=== PATIENT | female | born 1990 ===

== ENCOUNTER 2018-05-13 21:27 | Inpatient (IN) | payer BC ==
[2018-05-13 21:43] VITALS: O2SAT 100
[2018-05-13] MEDS ORDERED: Naloxone 0.4 mg/ml Inj (Adult) IVP STA (22:29)
[2018-05-13] MEDS ORDERED: Sodium Chloride 0.9% 1,000 ML IV STA (22:32)
--- NOTE | 2018-05-13 22:43 | ED PDOC ---
HPI: Psych/Substance Abuse Time Seen by Provider: 05/13/18 22:02 Chief Complaint (Nursing): Psychiatric Evaluation Chief Complaint (Provider): Suicide Attempt ED Caveat: Altered Mental Status History Per: Patient, EMS, Family Onset/Duration Of Symptoms: Hrs Current Symptoms Are (Timing): Still Present Suicide/Self Injury Attempted (Context): Ingestion (Ativan?) Modifying Factor(s): Alcohol Associated Symptoms: Depression, Suicidal Plan Additional Complaint(s): 28 yo F with history of depression presents to the emergency department brought in by EMS/[place] police after suicide attempt. Per [place] police, as coworker of the patient called the police after the patient had threatened to kill herself by jumping into the [place]. Police found her car along [facility] but the patient could not be found. They were able to track her to [facility] where patient was found tearful and lethargic appearing. Pt admitted to police to taking pills. Information per NGOZI Solorzano When speaking with patient, she states that she wants to . She states she took Ativan which is prescribed to her by her psychiatrist. She states that she took 5 x 10mg tablets. Pt was told that it is unlikely that she is prescribed 10mg tablets of Ativan, she is insistent that this is her dose. Pt states she also took other drugs. During evaluation, pt became bradycardic and unresponsive to painful stimuli. Nurses immediately placed IV lines and anesthesia was called for possible intu bation. During evaluation by anesthesiologist, pt became responsive refusing intubation. Pt now speaking with staff with stable vitals on the monitor. Past Medical History Vital Signs: Last Vital Signs Temp 98.6 F 05/13/18 21:40 Pulse 137 H 05/13/18 21:40 Resp 30 H 05/13/18 21:40 BP 96/52 L 05/13/18 21:40 Pulse Ox 100 05/13/18 21:40 - Medical History PMH: Depression - Surgical History Surgical History: No Surg Hx - Family History Family History: States: Unknown Family Hx - Living Arrangements Living Arrangements: Other (safe house) - Home Medications Home Medications: Ambulatory Orders Medication Instructions Recorded Fluoxetine HCl [Prozac] 40 mg PO DAILY 05/14/18 LORazepam [Ativan] 0.5 mg PO Q4 PRN 05/14/18 RX: buPROPion [Wellbutrin] 75 mg PO DAILY #30 tab 05/18/18 - Allergies Allergies/Adverse Reactions: Allergies Allergy/AdvReac Type Severity Reaction Status Date / Time No Known Allergies Allergy Verified 05/14/18 07:29 Review of Systems Constitutional: Negative for: Fever, Chills, Weakness Eyes: Positive for: Vision Change (double vision) Cardiovascular: Negative for: Chest Pain, Palpitations Respiratory: Negative for: Cough, Shortness of Breath Gastrointestinal: Negative for: Nausea, Vomiting, Abdominal Pain Genitourinary Female: Negative for: Dysuria Musculoskeletal: Negative for: Neck Pain Skin: Negative for: Rash, Lesions Neurological: Negative for: Weakness, Numbness Psych: Positive for: Depression - Laboratory Results Result Diagrams: 05/13/18 23:11 05/14/18 04:39 - ECG O2 Sat by Pulse Oximetry: 100 Medical Decision Making Medical Decision Makin yo F with suicide attempt by taking questionable amount of Ativan. Unresponsive episode spontaneously resolved consistent with syncope. Pt on 1:[address] -labs -Drug screen, ETOH, acetaminophen and salicylate levels -IV fluids -Crisis evaluation -site monitor. -re-evaluate patient 0010 Spoke to poison control and provided patient story, lab results, and EKG findings. Spoke directly to Anjana. Anjana recommends symptomatic treatment and IV fluids. Pt now medically optimized for evaluation by crisis team. 0700 Pt medically optimised and pending evaluation by crisis. Pt signed out to Dr. Perry Disposition - Clinical Impression Clinical Impression: Drug overdose, intentional - Disposition Disposition: Transfer of Care Disposition Time: 07:00 Condition: STABLE
[2018-05-13 23:36] LABS: BASO # 0.1 K/uL (0.0-0.2); BASO % 0.8 % (0.0-2.0); EOS # 0.2 K/uL (0.0-0.7); EOS % 3.5 % (0.0-4.0); LYMPH # 2.5 K/uL (1.0-4.3); LYMPH % 37.8 % (20.0-40.0); MEAN CELL VOLUME 88.5 fl (81.0-99.0); MEAN CORPUSCULAR HEMOGLOBIN 29.2 pg (27.0-31.0); MEAN PLATELET VOLUME 9.2 fl (7.2-11.7); MONO # 0.3 K/uL (0.0-0.8); MONO % 4.3 % (0.0-10.0); NEUT # 3.5 K/uL (1.8-7.0); NEUT % 53.6 % (50.0-75.0); NRBC % 0.1 % (0.0-0.0); RBC 4.47 Mil/uL (3.80-5.20); RED CELL DISTRIBUTION WIDTH 13.8 % (11.5-14.5); WHITE BLOOD COUNT 6.5 K/uL (4.8-10.8)
[2018-05-13 23:44] LABS: ALB/GLOB RATIO 1.3 (1.0-2.1); ALBUMIN 4.5 g/dL (3.5-5.0); ALT/SGPT 54 U/L (9-52); AST/SGOT 55 U/L (14-36); BLOOD UREA NITROGEN 10 mg/dl (7-17); CALCIUM 9.4 mg/dL (8.4-10.2); GFR NON-AFRICAN AMERICAN > 60
[2018-05-13 23:46] LABS: ACETAMINOPHEN < 10.0 ug/ml (10.0-30.0); SALICYLATE < 1.0 mg/dl
[2018-05-14 01:39] LABS: VENOUS BLOOD GAS BASE EXCESS -1.7 mmol/L (0.0-2.0); VENOUS BLOOD GAS PCO2 45 mmHg (40-60); VENOUS BLOOD GAS PO2 59 mm/Hg (30-55); VENOUS BLOOD PH 7.34 (7.32-7.43)
[2018-05-14] MEDS ORDERED: Sodium Chloride 0.9% 1,000 ML IV STA ×2 (02:18→03:36)
[2018-05-14 05:38] LABS: URINE BACTERIA RARE (<OCC); URINE BILIRUBIN NEGATIVE (NEGATIVE); URINE BLOOD LARGE (NEGATIVE); URINE CLARITY CLEAR (Clear); URINE COLOR STRAW (YELLOW); URINE GLUCOSE (UA) NEG (NEGATIVE); URINE LEUKOCYTE ESTERASE NEG Leu/uL (Negative); URINE PROTEIN NEGATIVE (NEGATIVE); URINE UROBILINOGEN 0.2-1.0 mg/dL (0.2-1.0)
[2018-05-14 05:50] LABS: ACETAMINOPHEN < 10.0 ug/ml (10.0-30.0); SALICYLATE < 1.0 mg/dl
[2018-05-14 05:54] LABS: ALB/GLOB RATIO 1.4 (1.0-2.1); ALBUMIN 3.8 g/dL (3.5-5.0); ALT/SGPT 34 U/L (9-52); AST/SGOT 45 U/L (14-36); BLOOD UREA NITROGEN 9 mg/dl (7-17); CALCIUM 8.5 mg/dL (8.4-10.2); GFR NON-AFRICAN AMERICAN > 60
[2018-05-14 05:55] LABS: SQUAMOUS EPITHIAL 5 /hpf (0-5)
[2018-05-14 06:19] LABS: BARBITURATES, UR NEGATIVE (NEGATIVE); BENZODIAZEPINES, UR NEGATIVE (NEGATIVE); OPIATES, UR NEGATIVE (NEGATIVE); PHENCYCLIDINE, UR NEGATIVE (NEGATIVE)
--- NOTE | 2018-05-14 11:29 | RAD ---
Date of service: 05/14/2018 HISTORY: possible admission COMPARISON: No prior. FINDINGS: LUNGS: No active pulmonary disease. PLEURA: No significant pleural effusion identified, no pneumothorax apparent. CARDIOVASCULAR: No atherosclerotic calcification present Normal. OSSEOUS STRUCTURES: No significant abnormalities. VISUALIZED UPPER ABDOMEN: Normal. OTHER FINDINGS: None. IMPRESSION: No active disease.
[2018-05-14] MEDS ORDERED: Magnesium Hydroxide Susp 30 ml UD PO PRN (12:36)
[2018-05-14] MEDS ORDERED: DiphenhydrAMINE 50 mg/ml Inj IM PRN (12:36)
[2018-05-14] MEDS ORDERED: Alum-Mag Hydrox-Simethicone Susp (30 mL) PO PRN (12:36)
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
[2018-05-15 09:58] LABS: T4 8.72 ug/dl (5.5-11.0)
--- NOTE | 2018-05-15 11:23 | PCM.PYCHPN ---
Psychiatric Progress Note - Psychiatric Progress Note Patient seen today, length of contact: PT EVALUATED DISCUSSED WITH TEAM CHART REVIEWED Patient Chief Complaint: I am very anxious Problems Identified/Issues Discussed: pt evaluated presenting with anxious mood and affect, continues to feel depressed, pt hesitant about continuing with treatment, motivational therapy provided in refernace to alcohol use also discussed the need for therapy on discharge, denied active thoughts of self harm denied command hallucinations Medical Problems: no hx of previous hospitalizations DSM 5 Symptoms Update: PTSD DEPRESSION ALCOHOL ABUSE Medication Change: Yes (lower prozac) Medical Record Reviewed: Yes Mental Status Examination - Cognitive Function Orientation: Person, Place, Situation Attention: WNL Concentration: WNL Association: WN Fund of Knowledge: [facility] Decription of patient's judgement and insights: partial insight fair judgment - Mood Mood: Depressed, Anxious - Affect Affect: Constricted, Depressed - Speech Speech: Soft - Formal Thought Process Formal Thought Process: No Impairment - Homicidal Ideation Homicidal Ideation: No Goal/Treatment Plan - Goal/Treatment Plan Need for Continued Stay: Severe depression anxiety, Discharge may exacerbated symptoms Progress Toward Problem(s) and Goals/Treatment Plan: decrease prozac to 10mg daily wellbutrin 75mg neurontin 100mg tid CBT motivational and group therapy
--- NOTE | 2018-05-16 13:45 | PCM.PYCHPN ---
Psychiatric Progress Note - Psychiatric Progress Note Patient seen today, length of contact: PT EVALUATED DISCUSSED WITH TEAM CHART REVIEWED Patient Chief Complaint: I am less depressed but I still get anxious Problems Identified/Issues Discussed: pt evaluated with treatment team, reported mood less depressed, continues to have periods of anxiety, CBT provided, discussing coping skills with anxiety pt denied side effects of wellbutrin, motivational therapy provided in reference to alcohol use , pt agreed to start individual therapy on discharge pt denied any current thoughts of self harm, denied perceptual disturbances Medical Problems: no hx of previous hospitalizations Medication Change: Yes (discontinue prozac) Medical Record Reviewed: Yes Mental Status Examination - Cognitive Function Orientation: Person, Place, Situation Attention: WNL Concentration: WNL Association: WNL Fund of Knowledge: [facility] Decription of patient's judgement and insights: partial insight fair judgment - Mood Mood: Depressed, Anxious - Affect Affect: Constricted, Depressed - Speech Speech: Soft - Formal Thought Process Formal Thought Process: No Impairment - Suicidal Ideation Suicidal Ideation: No - Homicidal Ideation Homicidal Ideation: No Goal/Treatment Plan - Goal/Treatment Plan Need for Continued Stay: Severe depression anxiety, Discharge may exacerbated symptoms Progress Toward Problem(s) and Goals/Treatment Plan: discontinue prozac to 10mg daily wellbutrin 75mg neurontin 100mg tid CBT motivational and group therapy
[2018-05-17 12:49] VITALS: RESP 18
--- NOTE | 2018-05-17 22:25 | PCM.PYCHPN ---
Psychiatric Progress Note - Psychiatric Progress Note Patient seen today, length of contact: PT EVALUATED DISCUSSED WITH TEAM CHART REVIEWED Patient Chief Complaint: pt reports was feeling depressed and anxious but now is feeling less depressed and anxious, sleeping better improved appetite, denies s/s etoh withdrawal. staff report pt rx adherent, participating in unit based activities, seen interacting with peers on unit. Problems Identified/Issues Discussed: alteration in mood alteration in coping substance use etoh recent remission Medical Problems: per chart pt seen by hospitalist Diagnostic Results: per chart per psychiatry per medicine per nursing per social work per recreational therapy DSM 5 Symptoms Update: improving mood denial of etoh w/d s/s Medication Change: No Medical Record Reviewed: Yes Consults ordered or reviewed: pt seen by hospitalist Mental Status Examination - Cognitive Function Orientation: Person, Place, Situation Attention: WNL Concentration: WNL Association: WNL Fund of Knowledge: [facility] Decription of patient's judgement and insights: impaired appears improving - Mood Mood: Neutral - Affect Affect: Broad - Speech Speech: Soft - Formal Thought Process Formal Thought Process: No Impairment - Suicidal Ideation Suicidal Ideation: No - Homicidal Ideation Homicidal Ideation: No Goal/Treatment Plan - Goal/Treatment Plan Need for Continued Stay: Severe depression anxiety, Discharge may exacerbated symptoms Progress Toward Problem(s) and Goals/Treatment Plan: inpt milieu vital signs and clinical observation per protocol and per clinical status adjust medications per clinical status discharge planning in progress l Estimated Date of D/C: 05/18/18 - Smoking Cessation Smoking Cessation Initiated: No Reason for not providing: defers
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
[2018-05-18 17:31] VITALS: BP 133/72; PULSE 85; TEMP 98.1
--- NOTE | 2018-05-23 05:43 | CARD ---
APPROVED REPORT Date of service: 05/13/2018 EKG Measurement Heart [id number] <Conclusion> Normal sinus rhythm Normal ECG
== END 2018-05-18 19:00 | disposition home or self-care (01) | DRG 885 ==
LOC: H.ER 21:27 → H.ERHOLD 05-14 08:04 → H.PSYCH 05-14 11:16
PROVIDERS: ADMIT Psychiatry & Neurology Psychiatry; ATTEND Psychiatry & Neurology Psychiatry
PROC: GZHZZZZ Group Psychotherapy (ICD-10-PCS; principal; 2018-05-14)
PROC: GZ58ZZZ Individual Psychotherapy, Cognitive-Behavioral (ICD-10-PCS; 2018-05-14)
DX: F33.9 Major depressive disorder, recurrent, unspecified (principal); F43.10 Post-traumatic stress disorder, unspecified; F10.10 Alcohol abuse, uncomplicated